=== PATIENT | male | born 1985 | race Caucasian/White ===

== ENCOUNTER 2018-11-13 07:30 | Day surgery (SDC) | payer OTHER ==
[~2018-11-13] VITALS: Ht 172.7 cm; Wt 75.3 kg
[2018-11-13] MEDS ORDERED: TIAZAC180 MG PO (08:46)
[2018-11-13] MEDS ORDERED: VITAMIN B-2 100MG (08:47)
[2018-11-13] MEDS ORDERED: MAG-OX 400400 MG/TAB PO (08:49)
[2018-11-13] MEDS ORDERED: CELEBREX 200MG200 MG PO (08:50)
[2018-11-13] MEDS ORDERED: SINEQUAN 1010 MG/CAP PO (08:51)
[2018-11-13] MEDS ORDERED: PHENERGAN 25 TA25 MG PO (08:52)
[2018-11-13] MEDS ORDERED: CYMBALTA 30MG30 MG PO (08:53)
[2018-11-13] MEDS ORDERED: LIORESAL 1010 MG/TAB PO (08:53)
[2018-11-13] MEDS ORDERED: THORAZINE 225 MG/TAB PO (08:54)
[2018-11-13] MEDS ORDERED: DESYREL 50MG50 MG PO (08:55)
[2018-11-13 09:11] VITALS: BP 130/64; PULSE 73; TEMP 98.3
[2018-11-13 10:05] VITALS: BP 122/80; PULSE 72; TEMP 98.3
--- NOTE | 2018-11-13 10:05 | NUR ---
Pt returns from endo procedure via cart. Pt ambulates from cart to recliner without complication and with RN assist. Monitors on and alarms set. Call light within reach. Pt drowsy but answers all questions appropriately. Report received from FABIANA Cross. Pt requesting soda pop, crackers, and applesauce. Pt denies pain or nausea. No other complaints.
[2018-11-13 10:15] VITALS: BP 119/85; PULSE 77
[2018-11-13 10:30] VITALS: BP 115/87; PULSE 75
--- NOTE | 2018-11-13 10:30 | NUR ---
Pt taking food and drink well. Pt remains drowsy but answers all questions appropriately. Dr. Laura visits with patient and fiance via phone. All questions answered to their satisfaction.
[2018-11-13 10:45] VITALS: BP 129/97; PULSE 80
--- NOTE | 2018-11-13 11:00 | NUR ---
Discharge instructions given to patient. All questions answered to his satisfaction. Handed to him are a thank you card, discharge instructions, diagnosis information, copies of photos, and a discharge med sheet.
--- NOTE | 2018-11-13 11:10 | NUR ---
Pt transferred out of hospital via wheelchair and this RN to private vehicle driven by friend.
== END 2018-11-13 11:10 | disposition home or self-care (01) ==
LOC: SDCO 07:30
DX: K21.0 Gastro-esophageal reflux disease with esophagitis (principal); R06.6 Hiccough; I10 Essential (primary) hypertension; G43.909 Migraine, unspecified, not intractable, without status migrainosus; F32.9 Major depressive disorder, single episode, unspecified; F43.10 Post-traumatic stress disorder, unspecified; Z88.6 Allergy status to analgesic agent; Z88.8 Allergy status to other drugs, medicaments and biological substances
CPT/HCPCS: J2704; J7030